=== PATIENT | male | born 1995 | race Caucasian/White ===

== ENCOUNTER 2017-03-08 09:24 | Emergency (ER) | payer OTHER ==
[2017-03-08 09:32] VITALS: RESP 16
--- NOTE | 2017-03-08 10:08 | EDPHY ---
H & P Stated Complaint: fever/?prostatitis/seen yesterday at [facility]/referred to urology Time Seen by Provider: 03/08/17 09:45 HPI/ROS: CHIEF COMPLAINT: Fever, perineal pain HISTORY OF PRESENT ILLNESS: 21-year-old male otherwise healthy complaining of 4 days of fever, flu-like symptoms, new onset nocturnal all enuresis for the past 4 nights. He was seen at [facility] yesterday (Friday) had laboratory studies, urinalysis performed all of which were negative. He presents to the ER complaining of continued fever this morning of 102.5 orally, new perineal pain . No pain with defecation. No history of STD. No new sexual partners. No urethral discharge. Denies rectal foreign body or anal intercourse. Denies male-male intercourse. REVIEW OF SYSTEMS: A ten point review of systems was performed and is negative with the exception of the items mentioned in the HPI PAST MEDICAL & SURGICAL HISTORY: No history of STD SOCIAL HISTORY:student nonsmoker PHYSICAL EXAM (Prior to examination, patient consented to physical exam, hands were washed and my usual and customary physical exam procedures followed) 1) GENERAL: Well-developed, well-nourished, alert and oriented. Appears to be in no acute distress. 2) HEAD: Normocephalic, atraumatic 3) HEENT: Pupils equal, round, reactive to light bilaterally. Sclera anicteric. Nasopharynx, oropharynx, clear, no lesions. Ears bilaterally with normal tympanic membranes. 4) NECK: Full range of motion, no meningeal signs. 5) LUNGS: Clear auscultation bilaterally, no wheezes, no rhonchi, no retractions. 6) HEART: Regular rate and rhythm, no murmur, no heave, no gallop. 7) ABDOMEN: No guarding, no rebound, no focal tenderness, negative McBurney's, negative Sears's, negative Rovsing's, negative peritoneal sign, 8) MUSCULOSKELETAL: Moving all extremities, no focal areas of tenderness, no obvious trauma. No peripheral edema or discoloration. 9) BACK: No CVA tenderness, no midline vertebral tenderness, no fluctuance, no step-off, no obvious trauma, no visual or palpable abnormality. 10) SKIN: No rash, no petechiae. 11) Psychiatric: Patient is oriented X 3, there is no agitation. 12) : Uncircumcised, no urethral discharge, no testicular or scrotal tenderness, no signs of Rissa's gangrene. Positive tenderness to palpation of the perineum. No crepitus. Rectal examination reveals no unusual prostatic hypertrophy, positive pain, no fluctuance DIFFERENTIAL DIAGNOSIS: in no particular include limited to cystitis, prostatitis, STD - Personal History Current Tetanus/Diphtheria Vaccine: Yes - Medical/Surgical History Hx Asthma: No Hx Chronic Respiratory Disease: No Hx Diabetes: No Hx Cardiac Disease: No Hx Renal Disease: No Hx Cirrhosis: No Hx Alcoholism: No Hx HIV/AIDS: No Hx Splenectomy or Spleen Trauma: No Other PMH: denies - Social History Smoking Status: Never smoked Constitutional: Initial Vital Signs Temperature (C) 36.8 C 03/08/17 09:29 Heart Rate 84 03/08/17 09:29 Respiratory Rate 16 03/08/17 09:29 Blood Pressure 123/72 H 03/08/17 09:29 O2 Sat (%) 96 03/08/17 09:29 O2 Delivery Mode Room Air Allergies/Adverse Reactions: No Known Allergies Allergy (Unverified 03/08/17 09:29) Home Medications: Medication Instructions Recorded Sulfamethox/Tmp 800/160 mg 1 tab PO BID@1000,2200 10 Days tab 03/08/17 [Bactrim Ds] Medical Decision Making ED Course/Re-evaluation: Care of patient under supervision of secondary supervising physician Dr Interiano with whom I discussed the patient's case. Patient has been re- evaluated with serial exams. At most recent exam at 11:15 a.m. he appears well , doubt sepsis. He is noted to have red blood cells in his urinalysis with otherwise no pyuria or bacteriuria and complaints of fever and perineal discomfort. We discussed possibility of prostatitis. I think that a course of antibiotics is appropriate and have start him on antibiotics and recommend follow up with Urology this week (today is Friday). Plan will be starting the patient on Bactrim DS 1 p.o. twice daily as I want to avoid fluoroquinolones in this 21-year-old active male. Given him a 10 day prescription, informed that he will likely necessitate a longer prescription however I want him to be seen by urologist within the next few days and they can extend his prescription. In addition I think that STD is less than likely the etiology. He is agreeable with this plan. In the meantime usual and customary urologic precautions instructions provided. - Data Points Laboratory Results: Laboratory Results 03/08/17 10:20 03/08/17 10:20 03/08/17 03/08/17 03/08/17 10:20 10:20 10:10 WBC 3.26 10^3/uL L 10^3/uL (3.80-9.50) RBC 5.70 10^6/uL 10^6/uL (4.40-6.38) Hgb 17.2 g/dL g/dL (13.7-17.5) Hct 49.0 % % (40.0-51.0) MCV 86.0 fL fL (81.5-99.8) MCH 30.2 pg pg (27.9-34.1) MCHC 35.1 g/dL g/dL (32.4-36.7) RDW 12.1 % % (11.5-15.2) Plt Count 157 10^3/uL 10^3/uL (150-400) MPV 9.8 fL fL (8.7-11.7) Neut % (Auto) 60.1 % % (39.3-74.2) Lymph % (Auto) 22.4 % % (15.0-45.0) Saunders % (Auto) 16.3 % H % (4.5-13.0) Eos % (Auto) 0.3 % L % (0.6-7.6) Baso % (Auto) 0.6 % % (0.3-1.7) Nucleat RBC Rel Count 0.0 % % (0.0-0.2) Absolute Neuts (auto) 1.96 10^3/uL 10^3/uL (1.70-6.50) Absolute Lymphs (auto) 0.73 10^3/uL L 10^3/uL (1.00-3.00) Absolute Monos (auto) 0.53 10^3/uL 10^3/uL (0.30-0.80) Absolute Eos (auto) 0.01 10^3/uL L 10^3/uL (0.03-0.40) Absolute Basos (auto) 0.02 10^3/uL 10^3/uL (0.02-0.10) Absolute Nucleated RBC 0.00 10^3/uL 10^3/uL (0-0.01) Immature Gran % 0.3 % % (0.0-1.1) Immature Gran # 0.01 10^3/uL 10^3/uL (0.00-0.10) Sodium 141 mEq/L mEq/L (134-144) Potassium 4.2 mEq/L mEq/L (3.5-5.2) Chloride 102 mEq/L mEq/L (97-110) Carbon Dioxide 26 mEq/l mEq/l (22-31) Anion Gap 13 mEq/L mEq/L (8-16) BUN 10 mg/dL mg/dL (7-23) Creatinine 1.0 mg/dL mg/dL (0.7-1.3) Estimated GFR > 60 Glucose 91 mg/dL mg/dL (70-100) Calcium 9.7 mg/dL mg/dL (8.5-10.4) Urine Color YELLOW Urine Appearance CLEAR Urine pH 7.0 (5.0-7.5) Ur Specific Monarch 1.020 (1.002-1.030) Urine Protein NEGATIVE (NEGATIVE) Urine Ketones NEGATIVE (NEGATIVE) Urine Blood NEGATIVE (NEGATIVE) Urine Nitrate NEGATIVE (NEGATIVE) Urine Bilirubin NEGATIVE (NEGATIVE) Urine Urobilinogen NEGATIVE EU EU (0.2-1.0) Ur Leukocyte Esterase NEGATIVE (NEGATIVE) Urine RBC 3-5 /hpf H /hpf (0-3) Urine WBC 1-3 /hpf /hpf (0-3) Ur Epithelial Cells NONE SEEN /lpf /lpf (NONE-1+) Urine Glucose NEGATIVE (NEGATIVE) Medications Given: Discontinued Medications Sodium Chloride (Ns) 1,000 mls @ 0 mls/hr IV ONCE ONE PRN Reason: Wide Open Stop: 03/08/17 10:11 Last Admin: 03/08/17 10:28 Dose: 1,000 mls Trimethoprim/Sulfamethoxazole (Bactrim Ds) 1 ea PO EDNOW ONE PRN Reason: Protocol Stop: 03/08/17 11:34 Last Admin: 03/08/17 11:40 Dose: 1 ea Departure - Departure Disposition: Home, Routine, Self-Care Clinical Impression: Bacterial prostatitis Condition: Good Instructions: Prostatitis (ED) Additional Instructions: Return emergency room immediately if you develop fevers, increased pain, abdominal pain, inability to tolerate oral intake or any other symptoms that concern you. Referrals: Evans Christina MD [Medical Doctor] - 2-3 days, call for appt. Prescriptions: Sulfamethox/Tmp 800/160 mg [Bactrim Ds] 1 tab PO BID@1000,2200 10 Days tab
[2017-03-08] MEDS ORDERED: NS 1,000 ML IV ONE (10:10)
[2017-03-08 10:24] LABS: COLOR YELLOW; LEUKOCYTE ESTERASE,URINE NEGATIVE (NEGATIVE); NITRITE,URINE NEGATIVE (NEGATIVE)
[2017-03-08 10:32] LABS: % IMMATURE GRANULYOCYTES 0.3 % (0.0-1.1); ABSOLUTE IMMATURE GRANULOCYTES 0.01 10^3/uL (0.00-0.10); ADD DIFF? NO; ADD MORPH? NO; ADD SCAN? YES; FRAGMENT RBC FLAG 0 (0-99); HEMOGLOBIN 17.2 g/dL (13.7-17.5); LEFT SHIFT FLG 0 (0-99); LIPEMIA HEMOLYSIS FLAG 90 (0-99); MEAN CELL HEMOGLOBIN 30.2 pg (27.9-34.1); MEAN CELL HEMOGLOBIN CONCENTR. 35.1 g/dL (32.4-36.7); MEAN PLATELET VOLUME 9.8 fL (8.7-11.7); PLATELET CLUMPS FLAG 10 (0-99); PLATELET COUNT 157 10^3/uL (150-400); RED CELL DISTRIBUTION WIDTH 12.1 % (11.5-15.2)
[2017-03-08 10:36] LABS: ATYPICAL LYMPHOCYTE FLAG 110 (0-99)
[2017-03-08 10:58] LABS: ANION GAP 13 mEq/L (8-16); CALCIUM 9.7 mg/dL (8.5-10.4); CARBON DIOXIDE 26 mEq/l (22-31); CHLORIDE 102 mEq/L (97-110); GLOMERULAR FILTRATION RATE > 60; GLUCOSE 91 mg/dL (70-100); POTASSIUM 4.2 mEq/L (3.5-5.2); SODIUM 141 mEq/L (134-144)
[2017-03-08 11:08] LABS: SCAN NEGATIVE
[2017-03-08] MEDS ORDERED: SULFAMETHOX/TMP 800/160 MG 1 TAB PO ONE (11:33)
[2017-03-08 11:40] VITALS: BP 134/92; PULSE 75; TEMP 99; O2SAT 95
== END 2017-03-08 11:51 | disposition home or self-care (01) ==
DX: N41.9 Inflammatory disease of prostate, unspecified (principal); B96.89 Other specified bacterial agents as the cause of diseases classified elsewhere

== ENCOUNTER 2017-06-29 20:02 | Emergency (ER) | payer OTHER ==
[2017-06-29 20:06] VITALS: BP 149/61; PULSE 69; RESP 18; TEMP 97.5; O2SAT 96
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
== END 2017-06-29 20:46 | disposition home or self-care (01) ==
PROC: 0HQ5XZZ Repair Chest Skin, External Approach (ICD-10-PCS; principal; 2017-06-29)
DX: T81.33XA Disruption of traumatic injury wound repair, initial encounter (principal); V19.3XXA Pedal cyclist (driver) (passenger) injured in unspecified nontraffic accident, initial encounter; Y82.9 Unspecified medical devices associated with adverse incidents; Y92.410 Unspecified street and highway as the place of occurrence of the external cause